=== PATIENT | female | born 1985 | race Caucasian/White ===

== ENCOUNTER → 2024-04-02 06:25 | Day surgery (SDC) | payer BC, SELFPAY | LOC: GI 06:25 | PROVIDERS: ATTENDING PHYSICIAN Surgery | DX: Z12.11 Encounter for screening for malignant neoplasm of colon (principal); K63.5 Polyp of colon; K62.1 Rectal polyp; Z86.0109 Personal history of other colon polyps | CPT/HCPCS: 45380; 88305 ==

== ENCOUNTER → 2024-06-06 09:18 | Outpatient (REF) | payer BC, SELFPAY | LOC: RAD 09:18 | PROVIDERS: ATTENDING PHYSICIAN Obstetrics & Gynecology; FAMILY PHYSICIAN Family Medicine | DX: K59.00 Constipation, unspecified (principal); R19.8 Other specified symptoms and signs involving the digestive system and abdomen | CPT/HCPCS: 74270 ==

== ENCOUNTER → 2024-06-13 06:16 | Day surgery (SDC) | payer BC, SELFPAY | LOC: GI 06:16 | PROVIDERS: ATTENDING PHYSICIAN Internal Medicine | DX: R10.13 Epigastric pain (principal); K29.70 Gastritis, unspecified, without bleeding | CPT/HCPCS: 43239; 88305; 88342 ==

== ENCOUNTER 2024-06-20 09:11 | Outpatient (RCR) | payer BC, SELFPAY | END 2024-06-20 23:59 | disposition home or self-care (01) | LOC: RPT 09:11 | PROVIDERS: ATTENDING PHYSICIAN Obstetrics & Gynecology; FAMILY PHYSICIAN Family Medicine | DX: K59.00 Constipation, unspecified (principal); Z73.6 Limitation of activities due to disability | CPT/HCPCS: 97163; 97530 ==

== ENCOUNTER 2024-08-02 10:05 | Outpatient (RCR) | payer BC, SELFPAY | END 2024-08-02 23:59 | disposition home or self-care (01) | LOC: RPT 10:05 | PROVIDERS: ATTENDING PHYSICIAN Obstetrics & Gynecology; FAMILY PHYSICIAN Family Medicine | DX: K59.00 Constipation, unspecified (principal); R19.8 Other specified symptoms and signs involving the digestive system and abdomen; R39.11 Hesitancy of micturition; R39.14 Feeling of incomplete bladder emptying; Z73.6 Limitation of activities due to disability; N94.10 Unspecified dyspareunia; M62.89 Other specified disorders of muscle | CPT/HCPCS: 97112; 97140; 97530 ==

== ENCOUNTER 2024-08-30 10:07 | Outpatient (RCR) | payer BC, SELFPAY | END 2024-08-30 23:59 | disposition home or self-care (01) | LOC: RPT 10:07 | PROVIDERS: ATTENDING PHYSICIAN Obstetrics & Gynecology; FAMILY PHYSICIAN Family Medicine | DX: K59.00 Constipation, unspecified (principal); R19.8 Other specified symptoms and signs involving the digestive system and abdomen; R39.11 Hesitancy of micturition; R39.14 Feeling of incomplete bladder emptying; Z73.6 Limitation of activities due to disability; N94.10 Unspecified dyspareunia; M62.89 Other specified disorders of muscle; R35.0 Frequency of micturition; N81.6 Rectocele | CPT/HCPCS: 97014; 97140; 97530 ==

== ENCOUNTER → 2025-02-06 08:17 | Outpatient (REF) | payer BC, SELFPAY | LOC: HWRAD 08:17 | PROVIDERS: ATTENDING PHYSICIAN Physician Assistant; FAMILY PHYSICIAN Family Medicine | DX: J34.89 Other specified disorders of nose and nasal sinuses (principal) | CPT/HCPCS: 70486 ==

== ENCOUNTER → 2025-04-24 14:13 | Outpatient (REF) | payer BC, SELFPAY | LOC: HWRAD 14:13 | PROVIDERS: FAMILY PHYSICIAN Family Medicine | DX: R10.20 Pelvic and perineal pain unspecified side (principal) | CPT/HCPCS: 76830; 76856 ==